=== PATIENT | male | born 1940 | race Caucasian/White ===

== ENCOUNTER 2016-04-22 15:25 | Inpatient (IN) | payer OTHER ==
[2016-04-22] MEDS ORDERED: DESYREL PO PRN (16:59)
[2016-04-22] MEDS ORDERED: TYLENOL PO PRN (16:59)
[2016-04-22] MEDS ORDERED: ZOFRAN IV PRN (16:59)
[2016-04-22] MEDS: NS 1,000 ML IV SCH (17:23)
[2016-04-22] MEDS: NEURONTIN PO SCH (17:23)
--- NOTE | 2016-04-22 20:10 | Diag Imaging Result Document ---
PROCEDURE NAME: CHEST-2 VIEWS - 04/22/2016 PA AND LATERAL RADIOGRAPH OF THE CHEST: COMPARISON: 03/31/2016. FINDINGS: The lungs are grossly clear. There is no discrete pleural fluid collection or evidence of pneumothorax. The cardiomediastinal silhouette and upper airway are grossly unremarkable. IMPRESSION: No evidence of acute chest pathology.
[2016-04-22] MEDS: AMBIEN PO SCH (20:33)
[2016-04-22] MEDS: MULTAQ PO SCH (20:33)
[2016-04-22] MEDS: FLOMAX PO SCH (20:33)
[2016-04-23 06:44] LABS: HEMOGLOBIN 12.1 g/dL (14.0-18.0); MCHC 33.6 g/dL (33-37); MCV 89.3 FL (81-99); MPV 9.4 FL (7.4-10.4); RBC 4.03 XMIL (4.7-6.1)
[2016-04-23 07:06] LABS: CALCIUM 9.4 mg/dL (8.8-10.2); POTASSIUM 4.4 mmol/L (3.5-5.1)
--- NOTE | 2016-04-23 09:34 | PROGRESS NOTE ---
DATE: 04/23/2016 SUBJECTIVE: Mr. Watson Echevarria was admitted to [facility] with [id number] renal failure. He does have longstanding chronic renal insufficiency. In his baseline creatinine runs from 1.7 to 1.9. He was recently hospitalized at [facility] where he underwent a cardiac catheterization with angioplasty and stenting of the LAD. I had seen him earlier in the week and his blood pressure had been low at times. We held his losartan. I recheck a BMP and his BMP demonstrated a BUN of 64 and a creatinine of 3.2. His blood pressure is well controlled. Systolic blood pressures are ranging from 112 to 128, whereas his diastolic blood pressures are in the 60s. He denies any chest pain, palpitations, or anginal equivalents. His renal function is improving. His BUN was 49 and his creatinine was 2.4. OBJECTIVE: Vital Signs: Temperature 98 degrees, pulse 65, respirations 18, BP 128/65. CV: Regular rate and rhythm with a 2/6 systolic ejection murmur at the left sternal margin. Lungs: Clear. Abdomen: Soft, nontender, with active bowel sounds. No hepatosplenomegaly. No abdominal bruits. Extremities: Without edema. ASSESSMENT AND PLAN: 1. [id number] renal failure. He does have known chronic renal insufficiency. His baseline creatinine runs from 1.7 to 1.9. He had a recent renal ultrasound that showed medical renal disease. I suspect that the acute renal failure was due to a combination of volume depletion, contrast exposure and the possibility of renal artery stenosis with the use of an ARB. I am going to continue to hold the losartan, cautiously rehydrate him with normal saline and we will consult Dr. Bacon for further evaluation. 2. Paroxysmal atrial fibrillation. He remains in normal sinus rhythm. His heart rate is well controlled on Cardizem 240 mg daily. We will continue Multaq 400 mg b.i.d. 3. Essential hypertension. His blood pressure is stable. We will continue Cardizem CD.
[2016-04-23] MEDS: NEURONTIN PO SCH ×3 (09:54→16:14)
[2016-04-23] MEDS: PLAVIX PO SCH (09:54)
[2016-04-23] MEDS: LOVAZA PO SCH (09:54)
[2016-04-23] MEDS: NS 1,000 ML IV SCH ×2 (09:54→22:10)
[2016-04-23] MEDS: CARDIZEM CD PO SCH (09:54)
[2016-04-23] MEDS: MULTAQ PO SCH ×2 (09:58→21:58)
[2016-04-23] MEDS: SYNTHROID PO SCH (09:58)
[2016-04-23] MEDS: CENTRUM SILVER PO SCH (09:58)
[2016-04-23] MEDS: SINGULAIR PO SCH (09:58)
[2016-04-23] MEDS: PAXIL PO SCH (09:58)
--- NOTE | 2016-04-23 10:19 | HISTORY AND PHYSICAL ---
HISTORY OF PRESENT ILLNESS: Mr. Watson Echevarria is a 75-year-old gentleman who is well known to me. He has a history of multiple medical problems including essential hypertension, mixed hyperlipidemia, primary hypothyroidism, chronic renal insufficiency, ischemic heart disease, and a peripheral neuropathy, as well as anxiety. He does have a longstanding history of chronic renal insufficiency. His creatinine typically runs in the range of 1.7-1.9. A recent ultrasound of the kidneys demonstrated medical renal disease and bilateral renal cysts. The patient had been having chest pain and chest pressure with radiation to his neck and arm. A Myoview GXT demonstrated no reversible ischemia. We performed a CT calcium score, which demonstrated heavy calcium deposition in all major vessels. I referred him to Dr. Casillas who performed a cardiac catheterization. He had severe three-vessel disease with chronic occlusion of the right coronary artery and significant disease of the circumflex and LAD. He underwent angioplasty and stenting of the LAD. I saw him in follow up from his discharge from [facility]. He denied any chest pain, palpitations, or anginal equivalents. His blood pressure had been low at times and we initially held the losartan HCT. I aliyah a BMP. The BMP demonstrated a BUN of 64 and a creatinine of 3.2. Given the acute worsening of his renal dysfunction, we admitted him to [facility] for further evaluation. PAST MEDICAL HISTORY: As above. PAST SURGICAL HISTORY: Ligation of varicose veins. Lumbar fusion. Cardiac catheterization with angioplasty and stenting of the LAD. ALLERGIES: No known drug allergies. FAMILY HISTORY: His father had known ischemic heart disease status post [place], hypertension, and diabetes. Brother had known coronary artery disease. Sister had gastric cancer. SOCIAL HISTORY: He has never smoked. He does not consume alcoholic beverages. He is and living with his . MEDICATIONS: Plavix 75 mg daily. Cardizem CD 240 mg daily. Multaq 400 mg b.i.d. Gabapentin 300 mg t.i.d. Levothyroxine 125 mcg daily. Singulair 10 mg daily. Multivitamin 1 p.o. daily. Lovaza 4 tablets daily. Flomax 0.4 mg daily. Trazodone 50 mg at bedtime. Ambien 10 mg at bedtime p.r.n. insomnia. Paxil 10 mg daily. Atorvastatin 40 mg at bedtime. REVIEW OF SYSTEMS: He denies any recent weight gain or weight loss.HEENT: Wears glasses. CV: No chest pain, palpitations, or anginal equivalents. Pulmonary: No shortness of breath, PND, orthopnea. GI: No reflux, dysphagia, melena, hematochezia, change in bowel habits, or rectal bleeding. Endocrine: No polyuria. No polydipsia. No cold or heat intolerance. Skin: No easy bruisability. : No leakage of urine with coughing or laughing. Skin: No easy bruisability. Neurologic: No migraines or seizures. PHYSICAL EXAMINATION: GENERAL: This is a well-developed, well-nourished, 75-year-old gentleman in no apparent distress. VITAL SIGNS: He is afebrile. Pulse 64. Respirations 20. BP 120/64. HEENT: Fundi with arteriolar wall thickening. Pupils equal, round, reactive to light. Extraocular eye movements intact. TMs without bullae. NECK: Supple. No masses, JVD or bruits. CV: Regular rate and rhythm with a soft 2/6 systolic ejection murmur at the left sternal margin. LUNGS: Clear. ABDOMEN: Soft, nontender with active bowel sounds. EXTREMITIES: Without edema. SKIN: No palpable purpura. BREAST EXAM: Deferred. EXAM: Deferred. RECTAL EXAM: Deferred. NEUROLOGICAL: He has decreased light touch in the distal extremities bilaterally. ASSESSMENT AND PLAN: 1. Bporl-tn-oquptly renal failure. I suspect that the etiology of the acute worsening of his renal function is multifactorial and is resulting from volume depletion. Exposure to contrast and possibly the use of an ARB. We will begin normal saline at 75 mL per hour and recheck a BMP in the morning. I am going to hold the losartan. I will consult Dr. Bacon to see the patient in consultation. 2. Hypertension. His blood pressure is stable. We will continue Cardizem CD 240 mg daily. 3. Paroxysmal atrial fibrillation. He remains in normal sinus rhythm. Heart rate is well controlled on Cardizem. We will continue Multaq 400 mg b.i.d. 4. Ischemic heart disease. He does have a drug-eluting stent in the LAD. He had bleeding complications on Eliquis and Brilinta. We will continue Plavix and aggressive risk factor modification. Given the patient's clinical course and comorbid conditions, I believe that admission to the hospital is both reasonable and necessary. I anticipate that the patient will be in the hospital for at least 2 midnights and I will, therefore, place him in inpatient status.
[2016-04-23] MEDS ORDERED: LIPITOR PO SCH (21:00)
[2016-04-23] MEDS: AMBIEN PO SCH (21:59)
[2016-04-23] MEDS: FLOMAX PO SCH (21:59)
[2016-04-24 07:20] LABS: CALCIUM 9.1 mg/dL (8.8-10.2)
[2016-04-24 08:42] VITALS: BP 139/75
[2016-04-24] MEDS: NS 1,000 ML IV SCH (09:38)
[2016-04-24] MEDS: SINGULAIR PO SCH (09:39)
[2016-04-24] MEDS: PLAVIX PO SCH (09:39)
[2016-04-24] MEDS: CARDIZEM CD PO SCH (09:39)
[2016-04-24] MEDS: LOVAZA PO SCH (09:39)
[2016-04-24] MEDS: MULTAQ PO SCH (09:39)
[2016-04-24] MEDS: PAXIL PO SCH (09:39)
[2016-04-24] MEDS: NEURONTIN PO SCH (09:39)
[2016-04-24] MEDS: CENTRUM SILVER PO SCH (09:39)
[2016-04-24] MEDS: SYNTHROID PO SCH (11:12)
--- NOTE | 2016-04-24 22:10 | DISCHARGE SUMMARY ---
ADMISSION DATE: 04/22/2016 DISCHARGE DATE: 04/24/2016 DATE OF ADMISSION: 04/22/2016. DATE OF DISCHARGE: 04/24/2016. DISCHARGE DIAGNOSES: 1. Acute renal failure superimposed on chronic renal failure. 2. Paroxysmal atrial fibrillation. 3. Ischemic heart disease status post angioplasty and stenting of the LAD. 4. Mixed hyperlipidemia. 5. Peripheral neuropathy. 6. Primary hypothyroidism. 7. Benign prostatic hyperplasia. 8. Depression. DISCHARGE INSTRUCTIONS: 1. Return to clinic in 1 week to see me, Dr. Luis Miguel Thornton, in anticipation of a transition of care visit. 2. Activity as tolerated. 3. Healthy heart diet. MEDICATIONS: 1. Atorvastatin 40 mg at bedtime. 2. Plavix 75 mg daily. 3. Diltiazem 240 mg daily. 4. Multaq 400 mg b.i.d., 5. Neurontin 300 mg t.i.d. 6. Levothyroxine 125 mcg daily. 7. Singulair 10 mg daily. 8. Multivitamin one p.o. daily. 9. Lovaza 1 g 4 tablets daily. 10. Paxil 10 mg daily. 11. Flomax 0.4 mg daily. 12. Ambien 10 mg at bedtime p.r.n. insomnia. DISCHARGE PHYSICAL EXAMINATION: General: This is a well-developed, well-nourished, 75-year-old gentleman in no apparent distress. Vitals: He is afebrile. Vital signs are stable. Cardiovascular: Regular rate and rhythm with a 2/6 systolic ejection murmur at the left sternal margin. Lungs: Clear. Abdomen: Soft, nontender, with active bowel sounds. ASSESSMENT AND PLAN: Mr. Echevarria has a longstanding history of chronic renal insufficiency. His baseline creatinine ranges from 1.7-1.9. We had stopped his losartan HCT earlier in the week because of periodic episodes of hypotension. He had recent contrast exposure with a cardiac catheterization and angioplasty. We checked BMP, which demonstrated a BUN of 64 and a creatinine of 3.6. The patient was admitted to the hospital for fluid resuscitation. We continued to hold the losartan. We avoided all anti-inflammatory medications and medications which potentially could affect renal function. With fluid resuscitation, his BUN and creatinine normalized to baseline. At the time of discharge, his BUN was 36 and his creatinine was 1.9. I will see him back in the office in 1 week for transition of care visit and we will make arrangements for him to see Dr. Bacon as an outpatient.
== END 2016-04-24 11:53 | disposition home or self-care (01) | DRG 684 ==
LOC: DIRADM 15:25 → 3N 15:57
PROVIDERS: ADMIT Internal Medicine; ATTEND Internal Medicine
DX: N17.9 Acute kidney failure, unspecified (principal); G62.9 Polyneuropathy, unspecified; I48.0 Paroxysmal atrial fibrillation; I12.9 Hypertensive chronic kidney disease with stage 1 through stage 4 chronic kidney disease, or unspecified chronic kidney disease; E78.2 Mixed hyperlipidemia; E03.9 Hypothyroidism, unspecified; F32.9 Major depressive disorder, single episode, unspecified; E86.9 Volume depletion, unspecified; N40.0 Benign prostatic hyperplasia without lower urinary tract symptoms; N18.9 Chronic kidney disease, unspecified; I25.10 Atherosclerotic heart disease of native coronary artery without angina pectoris; Z80.0 Family history of malignant neoplasm of digestive organs; Z98.1 Arthrodesis status; Z95.5 Presence of coronary angioplasty implant and graft; Z79.02 Long term (current) use of antithrombotics/antiplatelets; Z82.49 Family history of ischemic heart disease and other diseases of the circulatory system; Z83.3 Family history of diabetes mellitus; Z79.899 Other long term (current) drug therapy; Z79.82 Long term (current) use of aspirin
CPT/HCPCS: 36415; 71020; 80048; 85027; J7030